=== PATIENT | female | born 1980 | race Caucasian/White ===

== ENCOUNTER 2016-11-07 21:18 | Emergency (ER) | payer OTHER, BC ==
--- NOTE | 2016-11-07 22:26 | ED PDOC ---
Arrival/HPI - History of Present Illness Time/Duration: 1-3 hours Symptom Onset: Sudden Symptom Course: Unchanged Quality: Stabbing Context: Slipped <Susan Alan - Last Filed: 11/07/16 23:31> <Baljit Hernadez - Last Filed: 11/07/16 23:38> - General Chief Complaint: Lower Extremity Problem/Injury Time Seen by Provider: 11/07/16 21:37 - History of Present Illness Narrative History of Present Illness (Text): 11/07/16 22:23 35 y/o F with no significant PMHx presents after experiencing a fall at [facility] [employer] about 3 hours ago. Patient states that there was water on the floor and she slipped and landed on right butt cheek. Patient is unsure if she can stand, limited due to pain. Patient denies having any numbness, tingling, urinary or bowel incontinence. Patient took 2 Advil's at home for pain which helped a little. Pain radiates to posterior right thigh and low back (Susan Alan) Past Medical History - Provider Review Nursing Documentation Reviewed: Yes - Travel History Have you recently traveled outside [place] w/in the past 3 mons?: No - Infectious Disease Hx of Infectious Diseases: None - Musculoskeletal/Rheumatological Other/Comment: torn miniscus right knee - Psychiatric Hx Substance Use: No - Surgical History Hx Section: Yes - Anesthesia Hx Anesthesia: Yes Hx Anesthesia Reactions: No Hx Malignant Hyperthermia: No <Susan Alan - Last Filed: 11/07/16 23:31> Family/Social History - Physician Review Nursing Documentation Reviewed: Yes Family/Social History: Unknown Family HX Smoking Status: Never Smoked Hx Alcohol Use: Yes Frequency of alcohol use: Socially Hx Substance Use: No <Susan Alan - Last Filed: 11/07/16 23:31> Allergies/Home Meds <Susan Alan - Last Filed: 11/07/16 23:31> <Baljit Hernadez - Last Filed: 11/07/16 23:38> Allergies/Adverse Reactions: Allergies No Known Allergies Allergy (Verified 11/07/16 22:00) Review of Systems - Review of Systems Constitutional: Normal. absent: Fatigue, Fevers Eyes: Normal. absent: Vision Changes, Photophobia ENT: Normal. absent: Hearing Changes, Tinnitus, Sore Throat Respiratory: Normal. absent: SOB, Cough, Wheezing Cardiovascular: Normal. absent: Chest Pain, Palpitations, Edema Gastrointestinal: Normal. absent: Abdominal Pain, Constipation, Diarrhea, Nausea, Vomiting Genitourinary Female: Normal. absent: Dysuria, Frequency, Hematuria Musculoskeletal: Back Pain (right sided back pain ) Skin: Normal. absent: Rash, Pruritis, Skin Lesions, Laceration Neurological: Normal. absent: Headache, Dizziness, Focal Weakness Endocrine: Normal. absent: Diaphoresis, Polyuria Hemo/Lymphatic: Normal. absent: Adenopathy, Easy Bleeding Psychiatric: Normal. absent: Anxiety, Depression <Susan Alan - Last Filed: 11/07/16 23:31> Physical Exam Temperature: Afebrile Blood Pressure: Normal Pulse: Regular Respiratory Rate: Normal Appearance: Positive for: Well-Appearing, Non-Toxic, Comfortable Pain Distress: Moderate Mental Status: Positive for: Alert and Oriented X 3 - Systems Exam Head: Present: Atraumatic, Normocephalic Extroacular Muscles: Present: EOMI Mouth: Present: Moist Mucous Membranes Neck: Present: Normal Range of Motion. No: MIDLINE TENDERNESS Respiratory/Chest: Present: Clear to Auscultation, Good Air Exchange. No: Respiratory Distress, Accessory Muscle Use, Wheezes, Rales, Rhonchi Cardiovascular: Present: Regular Rate and Rhythm, Normal S1, S2. No: Murmurs, Gallop, Muffled Abdomen: Present: Normal Bowel Sounds. No: Tenderness, Distention, Peritoneal Signs Back: Present: Paraspinal Tenderness (right lumbar), Pain with Leg Raise (right sided). No: CVA Tenderness, Midline Tenderness Lower Extremity: Present: Normal Inspection, NORMAL PULSES. No: CALF TENDERNESS Neurological: Present: GCS=15, CN II-XII Intact, Speech Normal, Motor Func Grossly Intact, Normal Sensory Function, Norm Deep Tendon Reflexes (patellar), Normal 2Pt Descrimination Skin: Present: Warm, Dry, Normal Color. No: Rashes Psychiatric: Present: Alert, Oriented x 3, Normal Insight, Normal Concentration <Susan Alan - Last Filed: 11/07/16 23:31> Medical Decision Making - RAD Interpretation Superintendent Renting Managing: ED Physician <Susan Alan - Last Filed: 11/07/16 23:31> <Baljit Hernadez - Last Filed: 08/12/17 23:38> ED Course and Treatment: 11/07/16 22:29 35 y/o F presents for left lower back pain s/p mechanical fall Will do lumbar and pelvic xray. Patient will get toradol 30 mg IV for pain 11/07/16 23:36 Patient's pain improved with Toradol. xrays are unremarkable. (Susan Alan) Impression: Pt seen and evaluated with certified medical aide. Pt, with no significant past medical history, presented s/p mechanical fall at [facility] 3 hours prior to arrival. Pt states she slipped on a puddle of water and landed on right buttock. Pt now complaining of right lower back radiating to right posterior thigh. Aware and agree with HPI, clinical findings, plan, and management. Plan: -- XR Lumbar Spine -- XR Bilateral Hips -- Toradol -- Reassess and disposition (Baljit Hernadez) - RAD Interpretation Narrative RAD Interpretations (Text): 11/07/16 23:36 unremarkable (Susan Alan) Radiology Orders: 11/07/16 22:30 Hip Bi with Pelvis Fall Protocol [HIP MIN 2V W/ PELVIS NATHALY] [RAD] Stat LS SPINE WITH OBL > 18 YRS OLD [RAD] Stat - Medication Orders Current Medication Orders: Discontinued Medications Ketorolac Tromethamine (Toradol) 30 mg IM STAT STA Stop: 11/07/16 22:37 Last Admin: 11/07/16 22:41 Dose: 30 mg Ketorolac Tromethamine (Toradol) Confirm Administered Dose 30 mg .ROUTE .STK- MED ONE Stop: 11/07/16 22:39 Last Admin: 11/07/16 22:41 Dose: - PA / HELP DESK MANAGER / Resident Statement BENIGNO has reviewed & agrees with the documentation as recorded. BENIGNO has examined the patient and agrees with the treatment plan. <Baljit Hernadez - Last Filed: 11/07/16 23:38> Disposition/Present on Arrival - Present on Arrival Any Indicators Present on Arrival: No History of DVT/PE: No History of Uncontrolled Diabetes: No Urinary Catheter: No History of Decub. Ulcer: No History Surgical Site Infection Following: None - Disposition Have Diagnosis and Disposition been Completed?: Yes Disposition Time: 23:31 Patient Plan: Discharge <Susan Alan - Last Filed: 11/07/16 23:31> <Baljit Hernadez - Last Filed: 11/07/16 23:38> - Disposition Diagnosis: Back pain Disposition: HOME/ ROUTINE Patient Problems: Current Active Problems Problem Status Onset Back pain Acute Condition: GOOD Additional Instructions: Jordana Solano, thank you for letting us take care of you today. Your provider was Dr. Susan Alan. You were treated for low back pain. The emergency medical care you received today was directed at your acute symptoms. If you were prescribed any medication, please fill it and take as directed. It may take several days for your symptoms to resolve. Return to the Emergency Department if your symptoms worsen, do not improve, or if you have any other problems. Please contact your doctor or call one of the physicians/clinics you have been referred to that are listed on the Patient Visit Information form that is included in your discharge packet. Bring any paperwork you were given at discharge with you along with any medications you are taking to your follow up visit. Our treatment cannot replace ongoing medical care by a primary care provider (PCP) outside of the emergency department. Thank you for allowing the [email or web address] team to be part of your care today. If you had an X-Ray or CT scan: A Radiologist will review the ED reading if any change in treatment is needed we will contact you. If you had a blood, urine, or wound culture: It will take several days for the results, if any change in treatment is needed we will contact you. If you had an STI test: It will take 48 hours for the results. Please call after 1 week if you have not heard back. Prescriptions: Ibuprofen [Motrin] 600 mg PO TID #10 tab [facility]errals: [facility], [Primary Care Provider] - Follow up with primary Forms: [employer] (Y[place]i)
[2016-11-07 22:40] VITALS: TEMP 98.1
[2016-11-08 04:33] VITALS: BP 129/49; PULSE 71; RESP 16; O2SAT 99
--- NOTE | 2016-11-08 09:00 | RAD ---
PROCEDURE: Radiographs of the Lumbar Spine. HISTORY: fall COMPARISON: November 07, 2016. FINDINGS: BONES: Normal alignment. No listhesis. No fracture. DISC SPACES: Unremarkable. OTHER FINDINGS: None. IMPRESSION: No acute findings related to/accounting for the clinical presentation. No preliminary report provided by emergency department personnel.
--- NOTE | 2016-11-08 09:00 | RAD ---
PROCEDURE: Radiographs of the pelvis and bilateral hips HISTORY: Posttraumatic pain, right greater than left. COMPARISON: None. FINDINGS: BONES: Pelvis: Unremarkable. Right hip:Unremarkable. Left hip:Unremarkable. JOINTS: Right hip: Unremarkable. Left hip: Unremarkable. Sacroiliac Joints: Unremarkable. Pubic symphysis: Unremarkable. SOFT TISSUES: Normal. OTHER FINDINGS: None. IMPRESSION: Unremarkable radiographs of the hips and pelvis. No preliminary report provided by emergency department personnel.
== END 2016-11-08 00:20 | disposition home or self-care (01) ==
LOC: ED 21:18
DX: M54.5 Low back pain (principal)
CPT/HCPCS: 72110; 73521; 96372; 99284; J1885